=== PATIENT | female | born 1975 | race Two or more races ===

== ENCOUNTER 2025-05-30 10:48 | Emergency (ER) | payer OTHER ==
[~2025-05-30] VITALS: Ht 160 cm; Wt 97.7 kg
[2025-05-30 10:50] VITALS: BP 109/71; PULSE 64; RESP 16; TEMP 97.7; O2SAT 97
--- NOTE | 2025-05-30 10:57 | ED.PDOC ---
History of Present Illness HPI Comments 49 year old female with PMHx Hypoglycemia presents to the ED with a chief complaint of syncope onset today. Patient states she was sitting at urgent care with a family member, began experiencing sweats, shaky sensation, experienced a witnessed syncopal episode. Upon ED arrival BG was 99. Denies fever, chills, nausea, vomiting, diarrhea, headache, chest pain, shortness of breath. No other symptoms or modifying factors present at this time. Time Seen by MD: 10:50 Reviewed Notes: Medications, Allergies Allergies: Coded Allergies: Acetaminophen (Verified Allergy, Unknown, 05/30/25) Codeine (Verified Allergy, Unknown, 05/30/25) Hydrocodone (Verified Allergy, Unknown, 05/30/25) Morphine (Verified Allergy, Unknown, 05/30/25) Sulfa Antibiotics (Verified Allergy, Unknown, 05/30/25) Information Source: Patient Mode of Arrival: Wheelchair Severity: Moderate Timing: Minutes Duration: Since onset Prehospital treatment: None Past Medical History PAST MEDICAL HISTORY: DM Surgical History: Denies all surgeries EXTERIOR DESIGNER History: No Pertinent EXTERIOR DESIGNER History Family History Family History: Reviewed,noncontributory to illness, No family hx of Cancer, No family hx of DM, No family hx of Heart dilcia, No family hx of HTN, No family hx ofKidney dilcia, No family hx of Liver dilcia, No family hx of Lung dilcia, No family hx of Stroke Social History Smoker: Non-Smoker Alcohol: Denies ETOH Use Drugs: Denies Drug Use Lives In: Home Constitutional: reports: sweats; denies: chills, diaphoresis, fatigue, fever, malaise, weakness, others EENTM: denies: blurred vision, double vision, ear bleeding, ear discharge, ear drainage, ear pain, ear ringing, eye pain, eye redness, hearing loss, mouth pain, mouth swelling, nasal discharge, nose bleeding, nose congestion, nose pain, photophobia, tearing, throat pain, throat swelling, voice changes, others Respiratory: denies: cough, hemoptysis, orthopnea, SOB at rest, shortness of breath, SOB with excertion, stridor, wheezing, others Cardiovascular: denies: chest pain, dizzy spells, diaphoresis, Dyspnea on exertion, edema, irregular heart beat, left arm pain, lightheadedness, palpitations, PND, syncope, others Gastrointestinal: denies: abdomen distended, abdominal pain, blood streaked bowels, constipated, diarrhea, dysphagia, difficulty swallowing, hematemesis, melena, nausea, poor appetite, poor fluid intake, rectal bleeding, rectal pain, vomiting, others Genitourinary: denies: abnormal vagina bleeding, burning, dyspareunia, dysuria, flank pain, frequency, hematuria, incontinence, pain, , vagina discharge, urgency, others Neurological: denies: dizziness, fainting, headache, left sided numbness, left sided weakness, numbness, paresthesia, pre-existing deficit, right sided numbness, right sided weakness, seizure, speech problems, tingling, tremors, weakness, others Musculoskeletal: denies: back pain, gout, joint pain, joint swelling, muscle pain, muscle stiffness, neck pain, others Integumetry: denies: bruises, change in color, change in hair/nails, dryness, laceration, lesions, lumps, rash, wounds, others Allergic/Immunocompromised: denies: Difficulty Healing, Frequent Infections, Hives, Itching, others Hematologic/Lymphatic: denies: anemia, blood clots, easy bleeding, easy bruising, swollen glands, others Endocrine: denies: excessive hunger, excessive sweating, excessive thirst, excessive urination, flushing, intolerance to cold, intolerance to heat, unexplained weight gain, unexplained weight loss, others Psychiatric: denies: anxiety, bipolar disorder, depression, hopeless, panic disorder, schizophrenia, sleepless, suicidal, others All Other Systems: Reviewed and Negative Physical Exam General Appearance: Normal HEENT: Normal ENT Inspection, Pharynx Normal, TMs Normal Neck: Full Range of Motion, Non-Tender, Normal, Normal Inspection Respiratory: Chest Non-Tender, Lungs Clear, No Accessory Muscle Use, No Respiratory Distress, Normal Breath Sounds Cardiovascular: No Edema, No JVD, No Murmur, No Gallop, Normal Peripheral Pulses, Regular Rate/Rhythm Breast Exam: Deferred Gastrointestinal: No Organomegaly, Non Tender, No Pulsatile Mass, Normal Bowel Sounds, Soft Genitalia: Deferred Pelvic: Deferred Rectal: Deferred Extremities: No calf tenderness, Normal capillary refill, Normal inspection, Normal range of motion, Non-tender, No pedal edema Musculoskeletal : Apperance: Normal Neurologic: Alert, hospitality manager II-XII nml as Tested, No Motor Deficits, Normal Affect, Normal Mood, No Sensory Deficits Cerebellar Function: Normal Reflexes: Normal Skin: Dry, Normal Color, Warm Lymphatic: No Adenopathy Was a procedure done? Was a procedure done?: No Differential Dx Considerations may include: Cardiac arrhythmia, electrolyte abnormality, infectious etiology, intracranial abnormality X-Ray, Labs, Meds, VS Vital Signs Date Time Temp Pulse Resp B/P (MAP) Pulse Ox O2 Delivery O2 Flow Rate FiO2 05/30/25 10:50 97.7 64 16 109/71 (84) 97 97.7 05/30/25 10:50 Room Air* 0 21 05/30/25 10:48 98.1 67 18 109/71 94 98.1 Lab Test 05/30/25 12:19 05/30/25 11:10 Range/Units Troponin I High Sensitivity < 3 L < 3 L </=34 ng/L White Blood Count 7.0 4.4-10.8 10^3/uL Red Blood Count 5.21 H 4.0-5.20 10^6/uL Hemoglobin 16.0 12.2-16.2 g/dL Hematocrit 46.9 H 36.0-46.0 % Mean Corpuscular Volume 90.0 80.0-100.0 fL Mean Corpuscular Hemoglobin 30.7 28.0-32.0 pg Mean Corpuscular Hemoglobin Concent 34.1 32.0-36.0 g/dL Red Cell Distribution Width 12.2 11.8-14.3 % Platelet Count 347 140-450 10^3/uL Mean Platelet Volume 7.6 6.9-10.8 fL Neutrophils (%) (Auto) 67.2 37.0-80.0 % Lymphocytes (%) (Auto) 20.7 10.0-50.0 % Monocytes (%) (Auto) 9.2 0.0-12.0 % Eosinophils (%) (Auto) 2.2 0.0-7.0 % Basophils (%) (Auto) 0.7 0.0-2.0 % Neutrophils # (Auto) 4.7 1.6-8.6 10 ^3/uL Lymphocytes # (Auto) 1.4 0.4-5.4 10 ^3/uL Monocytes # (Auto) 0.6 0-1.3 10 ^3/uL Eosinophils # (Auto) 0.2 0-0.8 10 ^3/uL Basophils # (Auto) 0 0-0.2 10 ^3/uL Nucleated Red Blood Cells 0.2 % Sodium Level 140 136-145 mmol/L Potassium Level 4.4 3.5-5.1 mmol/L Chloride Level 106 98-107 mmol/L Carbon Dioxide Level 20 20-31 mmol/L Anion Gap 14 5-15 Blood Urea Nitrogen 9 9-23 mg/dL Creatinine 0.91 0.550-1.02 mg/dL Glomerular Filtration Rate Calc 78 >90 mL/min BUN/Creatinine Ratio 9.9 L 10.0-20.0 Serum Glucose 126 H 74-106 mg/dL Calcium Level 9.5 8.7-10.4 mg/dL [place] [address] Ph: [phone] DIAGNOSTIC IMAGING Diagnostic Imaging Report : [id number] Signed PATIENT: BRITTNI MURILLO ACCT: [id number] UNIT: [id number] : 1975 LOC: ER ROOM / BED: / AGE / SEX: 49 / F ADM STATUS: REG ER SERVICE 1057 ORDERING PHYSICIAN: DAYNA METZ MD PROCEDURE(s): HWOCT - HEAD WITHOUT CONTRAST REASON: syncope ORDER NUMBER(s): [id number], ACCESSION NUMBER(s): [id number] CT HEAD WITHOUT CONTRAST Indication: syncope EXAM DATE: 05/30/2025 11:20 AM COMPARISON: None TECHNIQUE: CT of the head without intravenous contrast. RADIATION DOSE: CTDIvol: 61 mGy, DLP: 1070 mGy*cm FINDINGS: There is no intracranial hemorrhage. There is no extra-axial fluid, mass, mass effect or midline shift. The ventricles are midline and normal in size. Basilar cisterns are patent. Graff-white differentiation is maintained. The paranasal sinuses and mastoids are well-pneumatized. Imaged portion of the orbits are unremarkable. IMPRESSION: No intracranial hemorrhage or mass effect. ATED BY: CHIRAG CROOKS MD DICTATED DATE/TIME: 05/30/25 115 SIGNED BY: CHIRAG CROOKS MD SIGNED DATE/TIME: 05/30/25 1150 CC: [place] [address] Ph: [phone] DIAGNOSTIC IMAGING Diagnostic Imaging Report : [id number] Signed PATIENT: BRITTNI MURILLO ACCT: [id number] UNIT: [id number] : 1975 LOC: ER ROOM / BED: / AGE / SEX: 49 / F ADM STATUS: REG ER SERVICE 1057 ORDERING PHYSICIAN: DAYNA METZ MD PROCEDURE(s): CXRP - CHEST PORTABLE REASON: syncope ORDER NUMBER(s): [id number], ACCESSION NUMBER(s): [id number] CHEST RADIOGRAPH Indication: Syncope Technique: Single frontal view of the chest was obtained Comparison: None FINDINGS: Lines and Tubes: None Lungs: No focal consolidation. Pleura: No effusion. No pneumothorax. Cardiomediastinal contours: Unremarkable Bones: No acute osseous abnormality. IMPRESSION: 1. No acute cardiopulmonary disease. ATED BY: KALPANA MUNROE MD DICTATED DATE/TIME: 05/30/25 1144 SIGNED BY: KALPANA MUNROE MD SIGNED DATE/TIME: 05/30/25 1144 CC: Time of 1ST Reevaluation: 11:20 Reevaluation 1ST: Unchanged Patient Education/Counseling: Diagnosis, Treatment, Prognosis Family Education/Counseling: No Family Present SEPSIS Sepsis Screen Physician Orders Urinalysis (05/30/25 10:57) Chest Portable (05/30/25 10:57) Electrocardigram (05/30/25 10:57) Head Without Contrast (05/30/25 10:57) Troponin-I Hs (05/30/25 13:57) Electrocardigram (05/30/25 11:57) Electrocardigram (05/30/25 13:57) Vital Signs Date Time Temp Pulse Resp B/P (MAP) Pulse Ox O2 Delivery O2 Flow Rate FiO2 05/30/25 10:50 97.7 64 16 109/71 (84) 97 97.7 05/30/25 10:50 Room Air* 0 21 05/30/25 10:48 98.1 67 18 109/71 94 98.1 Laboratory Tests Test 05/30/25 11:10 White Blood Count 7.0 10^3/uL (4.4-10.8) Departure 1 Departure Time of Disposition: 13:25 (Patient with a syncopal episode was likely in my judgment vasovagal in nature. His CT head was benign chest x-ray is benign labs were benign. We will discharge patient home with outpatient follow up) Impression: Primary Impression: Vasovagal syncope Disposition: HOME / SELF CARE / HOMELESS Condition: Stable Additional Instructions: You likely had a vasovagal episode. To stay well rested and well hydrated. You should follow up with the regular doctor within one week. If your symptoms worsen or you have any other concerns please return to the emergency. Discharged With: Self Critical Care Note Critical Care Time?: No Stability Stability form required: No Heart Score Heart Score: Heart Score Response (Comments) Value History N/A 0 EKG N/A 0 Age N/A 0 Risk Factors N/A 0 Troponin N/A 0 Total 0 I personally scribed for DAYNA METZ MD ([email or web address]) on 05/30/25 at 10:57. Electronically submitted by Tsih De La Garza ([email or web address]). I personally scribed for DAYNA METZ MD ([email or web address]) on 05/30/25 at 11:29. Electronically submitted by Tish De La Garza ([email or web address]). I personally scribed for DAYNA METZ MD ([email or web address]) on 05/30/25 at 12:45. Electronically submitted by Tish De La Garza ([email or web address]). DAYNA METZ MD May 30, 2025 10:57
[2025-05-30 11:28] LABS: Hematocrit 46.9 % (36.0-46.0); Hemoglobin 16.0 g/dL (12.2-16.2); Mean Corpuscular Hemoglobin 30.7 pg (28.0-32.0); Mean Corpuscular Volume 90.0 fL (80.0-100.0); Nucleated Red Blood Cells % 0.2 %
[2025-05-30 11:41] LABS: Chloride 106 mmol/L (98-107); Potassium 4.4 mmol/L (3.5-5.1); Sodium 140 mmol/L (136-145)
[2025-05-30 11:42] LABS: Anion Gap 14 (5-15); Calcium 9.5 mg/dL (8.7-10.4); Carbon Dioxide 20 mmol/L (20-31)
[2025-05-30 11:47] LABS: BUN/Creatinine Ratio 9.9 (10.0-20.0); Blood Urea Nitrogen 9 mg/dL (9-23)
--- NOTE | 2025-05-30 11:47 | DVH ---
CHEST RADIOGRAPH Indication: Syncope Technique: Single frontal view of the chest was obtained Comparison: None FINDINGS: Lines and Tubes: None Lungs: No focal consolidation. Pleura: No effusion. No pneumothorax. Cardiomediastinal contours: Unremarkable Bones: No acute osseous abnormality. IMPRESSION: 1. No acute cardiopulmonary disease.
--- NOTE | 2025-05-30 11:48 | DVH ---
CT HEAD WITHOUT CONTRAST Indication: syncope EXAM DATE: 05/30/2025 11:20 AM COMPARISON: None TECHNIQUE: CT of the head without intravenous contrast. RADIATION DOSE: CTDIvol: 61 mGy, DLP: 1070 mGy*cm FINDINGS: There is no intracranial hemorrhage. There is no extra-axial fluid, mass, mass effect or midline shift. The ventricles are midline and normal in size. Basilar cisterns are patent. Graff-white differentiation is maintained. The paranasal sinuses and mastoids are well-pneumatized. Imaged portion of the orbits are unremarkable. IMPRESSION: No intracranial hemorrhage or mass effect.
[2025-05-30 11:51] LABS: Glucose 126 mg/dL (74-106)
== END 2025-05-30 13:33 | disposition home or self-care (01) ==
LOC: ER 10:48
DX: R55 Syncope and collapse (principal); E11.9 Type 2 diabetes mellitus without complications; Z88.2 Allergy status to sulfonamides; Z88.5 Allergy status to narcotic agent
CPT/HCPCS: 36415; 70450; 71045; 80048; 84484; 85025